=== PATIENT | female | born 1980 | race Caucasian/White ===

== ENCOUNTER 2023-10-16 06:38 | Day surgery (SDC) | payer SELFPAY ==
[2023-10-07 16:52] VITALS: BMI 21.7
[2023-10-16] MEDS ORDERED: ceFAZolin SODIUM 1 GM VIAL ONE ×3 (07:17→14:24)
[2023-10-16] MEDS ORDERED: GENTAMICIN SO4 80 MG/2 ML VIAL ONE (07:18)
[2023-10-16] MEDS ORDERED: BUPIVACAINE HCL/PF 2.5 MG/ML - 30 ML VIAL IJ ONE (07:18)
[2023-10-16] MEDS ORDERED: GUM MASTIC/STORAX/MSAL/ALCOHOL 1 DRP DROPSBTL MC ONE (07:18)
[2023-10-16] MEDS ORDERED: LIDOCAINE 1%/EPI 1:100000 (50 ML MULTI DOSE VIAL) ONE (07:29)
[2023-10-16] MEDS ORDERED: MIDAZOLAM HCL 2 MG/2 ML SINGLE DOSE VIAL ONE (08:13)
[2023-10-16] MEDS ORDERED: PROPOFOL 20 ML ONE ×2 (08:13→10:42)
[2023-10-16] MEDS ORDERED: ROCURONIUM BROMIDE 50 MG/5 ML SYRINGE ONE (08:13)
[2023-10-16] MEDS ORDERED: ONDANSETRON 4 MG/2 ML VIAL ONE ×3 (10:01→16:24)
[2023-10-16] MEDS ORDERED: DEXAMETHASONE SOD PHOSPHATE 4 MG/1 ML VIAL ONE (10:01)
[2023-10-16] MEDS ORDERED: HYDROmorphone HCL/PF 1 MG/ML VIAL ONE (10:06)
[2023-10-16] MEDS ORDERED: ACETAMINOPHEN INJECTION 100 ML IVPB ONE (11:03)
[2023-10-16] MEDS ORDERED: ONDANSETRON 4 MG/2 ML VIAL IVPUSH PRN (12:22)
[2023-10-16] MEDS ORDERED: oxyCODONE HCL 5 MG TABLET PO PRN (12:22)
[2023-10-16] MEDS ORDERED: LACTATED RINGERS SOLUTION 1,000 ML IV SCH (12:30)
[2023-10-16] MEDS ORDERED: FENTANYL CITRATE/PF 50 MCG/ML VIAL ONE ×2 (16:15→16:24)
[2023-10-16] MEDS ORDERED: oxyCODONE HCL 5 MG TABLET ONE (17:10)
[2023-10-16 17:15] VITALS: RESP 16; TEMP 97.3
[2023-10-16] MEDS ORDERED: oxyCODONE HCL 5 MG TABLET PO ONE (17:15)
[2023-10-16 17:59] VITALS: BP 148/73; PULSE 78
== END 2023-10-16 17:59 | disposition home or self-care (01) ==
LOC: FASU 06:38
PROVIDERS: ATTEND Surgery
CPT/HCPCS: 81025; 88305-TC; 94760